=== PATIENT | female | born 1965 | race Caucasian/White ===

== ENCOUNTER 2019-05-26 06:32 | Emergency (ER) | payer BC ==
[~2019-05-26] VITALS: Ht 172.7 cm; Wt 102.5 kg
[2019-05-26 06:45] VITALS: BP 157/77
--- NOTE | 2019-05-26 06:45 | NUR ---
TO BED # 11 AMBULATORY
--- NOTE | 2019-05-26 06:45 | NUR ---
53 Y/O FEMALE BIB SELF COUGH, RUNNYNOSE. NUMBNESS IN FINGERS , H/A SINCE MONDAY. GENERALIZED BODY ACHES 11/03; BREATHING IS UNLABORED AND SYMMETRICAL. 98% ON RA; 16 RR; DENIES N/V/D. PER PATIENT, " I WENT TO URGENT CARE A WEEK AGO AND WAS DIAGNOSED WITH BRONCHITIS. I WAS PRESCRIBED ANTIBIOTICS. THE COUGH AND RUNNY NOSE HAS NOT GONE AWAY." ERMD MADE AWARE OF STATUS. SIDE RAILX1. PULSE OXIMETER PLACED. PMH: HTN RX:HCTZ; ASA; ATENOLOL NKDA
--- NOTE | 2019-05-26 06:53 | NUR ---
INFLUENZA SWAB DONE, SENT TO LAB
--- NOTE | 2019-05-26 07:10 | NUR ---
REPORT GIVEN TO GAGANDEEP MCKENNA.
--- NOTE | 2019-05-26 07:21 | NUR ---
PT SITTING IN BED, AWAKE, NAD. BROACH GRINDER @ BEDSIDE.
--- NOTE | 2019-05-26 07:33 | NUR ---
Dr. Campos is evaluating the patient at bedside.
[2019-05-26] MEDS ORDERED: ALBUTEROL SULFATE/IPRATROPIU 3 ML SOL IH ONE (07:35)
[2019-05-26] MEDS ORDERED: methylPREDNISolone SS 125 MG/2 ML VIAL IM ONE (07:35)
--- NOTE | 2019-05-26 07:43 | NUR ---
RT @ BEDSIDE FOR RESPIRATORY INTERVENTION.
--- NOTE | 2019-05-26 08:02 | NUR ---
RAISIN SEPARATOR OPERATOR @ BEDSIDE FOR BLOOD DRAW.
[2019-05-26 08:16] LABS: BASOPHILS % (AUTO) 0.5 % (0.0-2.0); EOSINOPHILS # (AUTO) 0.1 K/uL (0-0.4); EOSINOPHILS % (AUTO) 1.5 % (0.0-4.0); HEMATOCRIT 37.6 % (36-48); HEMOGLOBIN 12.8 g/dL (12.0-16.0); LYMPHOCYTES # (AUTO) 1.9 K/uL (2.5-16.5); MEAN CORPUSCULAR HEMOGLOBIN 29 pg (27-31); MEAN CORPUSCULAR HGB CONC 34 g/dL (33-37); MEAN CORPUSCULAR VOLUME 86.7 fL (80-94); MONOCYTES # (AUTO) 1.1 K/uL (0.8-1.0); NEUTROPHILS # (AUTO) 2.6 K/uL (1.8-7.7); PLATELET COUNT (AUTO) 284 K/uL (140-450); RED BLOOD CELL COUNT(AUTO) 4.34 MIL/uL (4.20-5.40); RED CELL DISTRIBUTION WIDTH 13.4 % (11.6-13.7); WHITE BLOOD COUNT (AUTO) 5.7 K/uL (4.8-10.8)
[2019-05-26] MEDS ORDERED: OSELTAMIVIR PHOSPHATE 75 MG CAP PO ONE (08:20)
--- NOTE | 2019-05-26 08:20 | NUR ---
Dr. Campos is re-evaluating the patient at bedside.
[2019-05-26 08:37] LABS: ANION GAP 11.6 (8-16); CARBON DIOXIDE 30.3 mmol/L (21-32); POTASSIUM 3.9 mmol/L (3.5-5.1); TOTAL BILIRUBIN 0.4 mg/dL (0.0-1.0)
[2019-05-26 08:40] VITALS: BP 157/74
[2019-05-26 08:40] LABS: LYMPHOCYTES % (AUTO) 33.2 % (20.5-51.1); MONOCYTES % (AUTO) 19.3 % (1.7-9.3); NEUTROPHILS % (AUTO) 45.5 % (42.2-75.2)
--- NOTE | 2019-05-26 08:40 | NUR ---
Patient discharged with v/s stable. Written and verbal after care instructions given and explained. Patient alert, oriented and verbalized understanding of instructions. Ambulatory with steady gait. All questions addressed prior to discharge. ID band removed. Patient advised to follow up with PMD. Rx of TAMIFLU AND IBUPROFEN given. Patient educated on indication of medication including possible reaction and side effects. Opportunity to ask questions provided and answered.
== END 2019-05-26 08:40 | disposition home or self-care (01) ==
LOC: MED 06:32
DX: J10.1 Influenza due to other identified influenza virus with other respiratory manifestations (principal); I10 Essential (primary) hypertension
CPT/HCPCS: 36415; 71045; 80053; 83605; 85025; 87040; 87804; 94640; 99283; J2930